=== PATIENT | female | born 1970 | race Caucasian/White ===

== ENCOUNTER 2024-09-11 14:04 | Inpatient (IN) | payer OTHER ==
[~2024-09-11] VITALS: Ht 175.3 cm; Wt 105.5 kg
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
[2024-09-11 15:00] VITALS: PULSE 71; RESP 18; O2SAT 97
--- NOTE | 2024-09-11 15:00 | DVH ---
CLINICAL INDICATION: pain TECHNIQUE: For XY R WRIST 2 VIEW XRAY Comparison: None FINDINGS/IMPRESSION: Comminuted, displaced and impacted fracture of the distal radial metaphysis with intra-articular exte nsion. Moderately displaced fracture of the styloid process of the ulna. Diffuse soft-tissue swelling.
[2024-09-11 16:02] LABS: Basophils # (auto) 0 10 ^3/uL (0-0.2); Basophils % (auto) 0.3 % (0.0-2.0); Eosinophils # (auto) 0 10 ^3/uL (0-0.8); Eosinophils % (auto) 0.1 % (0.0-7.0); Hematocrit 44.2 % (36.0-46.0); Hemoglobin 15.2 g/dL (12.2-16.2); Lymphocytes % (auto) 8.6 % (10.0-50.0); Mean Corpuscular Hemoglobin 31.5 pg (28.0-32.0); Mean Corpuscular Hgb Conc. 34.5 g/dL (32.0-36.0); Mean Corpuscular Volume 91.3 fL (80.0-100.0); Monocytes # (auto) 0.6 10 ^3/uL (0-1.3); Monocytes % (auto) 5.1 % (0.0-12.0); Neutrophils # (auto) 10.5 10 ^3/uL (1.6-8.6); Neutrophils % (auto) 85.9 % (37.0-80.0); Platelet Count (auto) 232 10^3/uL (140-450); Red Blood Cells 4.84 10^6/uL (4.0-5.20); Red Cell Distribution Width 12.4 % (11.8-14.3); White Blood Cell 12.2 10^3/uL (4.4-10.8)
[2024-09-11 16:13] LABS: Chloride 108 mmol/L (98-107); Potassium 3.9 mmol/L (3.5-5.1); Sodium 142 mmol/L (136-145)
[2024-09-11 16:14] LABS: Anion Gap 3 (5-15); Carbon Dioxide 31 mmol/L (20-31)
[2024-09-11 16:15] LABS: Calcium 9.5 mg/dL (8.7-10.4)
[2024-09-11 16:20] LABS: BUN/Creatinine Ratio 10.7 (10.0-20.0); Blood Urea Nitrogen 11 mg/dL (9-23); Glucose 83 mg/dL (74-106)
[2024-09-11] MEDS: ONDANSETRON HCL 4 MG/2 ML VIAL IV ONE ×2 (16:45→19:55)
[2024-09-11] MEDS: MORPHINE SULFATE 4 MG/ML SYR/VIAL IV ONE ×2 (16:45→19:55)
[2024-09-11] MEDS: ATROPINE SULF 1 MG/10ml SYR IV ONE (17:07)
[2024-09-11] MEDS: DOPamine 1600MCG/ML D5W 250 ML IV ONE (17:30)
[2024-09-11] MEDS: SODIUM CHLORIDE 0.9% 1,000 ML IV ONE (17:30)
[2024-09-11] MEDS: ATROPINE SULF 1 MG/10ml SYR ONE (18:07)
[2024-09-11 19:30] VITALS: PULSE 81; RESP 16; O2SAT 95
--- NOTE | 2024-09-11 21:06 | ECG ---
[facility] Test Date: 2024-09-11 Test Time: 14:05:16 Pat Name: TACOS STOKES Department: ER Room: [address] [place] [address] Gender: F Show Card Writer: DR XIONG: 1970 Requested By: TAMELA KERR Order Number: [id number] Reading MD: Brendan Dillon Measurements Intervals [place] Rate: 53 P: 49 [place]: 179 QRS: 38 QRSD: 109 T: 63 QT: 471 QTc: 443 Interpretive Statements Sinus rhythm Baseline wander in lead(s) V3 Electronically Signed On 09-12-2024 12:44:05 PST by Brendan Dillon Please click the below link to view image of tracing.
[2024-09-11] MEDS ORDERED: NITROGLYCERIN 0.4 MG SL TAB SL PRN (21:15)
[2024-09-11] MEDS ORDERED: ONDANSETRON HCL 4 MG/2 ML VIAL IV PRN (21:15)
[2024-09-11] MEDS ORDERED: MORPHINE SULFATE INJ 2 MG/ml SYRG IV PRN (21:15)
[2024-09-12] VITALS (52 sets, daily range): BP systolic 97–169; BP diastolic 35–77; PULSE 58–88; RESP 14–22; TEMP 98.1–99.2; O2SAT 82–95
[2024-09-12] MEDS: HYDROcodone-ACET 5/325MG TAB PO PRN (00:46)
[2024-09-12 03:50] LABS: Basophils # (auto) 0 10 ^3/uL (0-0.2); Basophils % (auto) 0.3 % (0.0-2.0); Eosinophils # (auto) 0 10 ^3/uL (0-0.8); Eosinophils % (auto) 0.1 % (0.0-7.0); Hemoglobin 14.5 g/dL (12.2-16.2); Lymphocytes # (auto) 0.9 10 ^3/uL (0.4-5.4); Lymphocytes % (auto) 8.8 % (10.0-50.0); Mean Corpuscular Hemoglobin 31.4 pg (28.0-32.0); Mean Corpuscular Hgb Conc. 33.8 g/dL (32.0-36.0); Monocytes # (auto) 0.9 10 ^3/uL (0-1.3); Monocytes % (auto) 9.3 % (0.0-12.0); Neutrophils # (auto) 8.1 10 ^3/uL (1.6-8.6); Neutrophils % (auto) 81.5 % (37.0-80.0); Platelet Count (auto) 238 10^3/uL (140-450); Red Blood Cells 4.62 10^6/uL (4.0-5.20); Red Cell Distribution Width 12.7 % (11.8-14.3); White Blood Cell 9.9 10^3/uL (4.4-10.8)
[2024-09-12 04:04] LABS: Chloride 105 mmol/L (98-107)
[2024-09-12 04:05] LABS: Anion Gap 3 (5-15); Calcium 8.8 mg/dL (8.7-10.4); Carbon Dioxide 27 mmol/L (20-31)
[2024-09-12 04:10] LABS: BUN/Creatinine Ratio 8.5 (10.0-20.0); Blood Urea Nitrogen 8 mg/dL (9-23); Glucose 235 mg/dL (74-106)
[2024-09-12 04:12] LABS: Sodium 135 mmol/L (136-145)
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
[2024-09-12] MEDS: DOPamine 1600MCG/ML D5W 0 ML IV ONE (07:58)
--- NOTE | 2024-09-12 08:34 | DVH ---
CHEST RADIOGRAPH Indication:sob Technique: Single frontal view of the chest was obtained Comparison: None FINDINGS: Lines and Tubes: None Lungs: No focal consolidation. There is minimal scarring versus atelectasis in the left lung base. Pleura: No effusion.No pneumothorax. Cardiomediastinal contours: Unremarkable Bones: No acute osseous abnormality. IMPRESSION: 1. No acute cardiopulmonary disease. HS:Y
[2024-09-12 10:17] LABS: Magnesium 2.1 mg/dL (1.6-2.6)
[2024-09-12 10:19] LABS: Phosphorus 3.1 mg/dL (2.4-5.1)
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
[2024-09-12 12:55] LABS: INR 0.97 (0.9-1.15); Partial Thromboplastin Time 28.5 SEC (24.5-34.5); Prothrombin Time 10.3 sec (9.3-11.8)
--- NOTE | 2024-09-12 13:26 | DVHSR ---
APPROVED REPORT EXAM: Two-dimensional and M-mode echocardiogram with Doppler and color Doppler. Blood Pressure: 139/60 mmHg INDICATION Arrhythmia RISK FACTORS Height: 5'9", Weight: 233 DIMENSIONS LVDd5.1 (3.8-5.7cm)LA (2D)4.4 (1.9-4.0cm)Aortic Root2.9 (2.0-3.7cm) LVDs2.8 (2.5-4.0cm)LA (MM) (1.9-4.0cm)Aortic Cusp Exc2.1 (1.5-2.0cm) EF (%) 76.0 (55-70%)Rt. Atrium4.2 (1.9-4.0cm)Asc. Aorta3.2 cm IVSd1.0 (0.7-1.1cm)RV (D)4.3 (1.8-2.4cm) PWd0.9 (0.7-1.1cm) Mitral Valve MitralMitral Stenosis E wave0.85m/sMV Mean GR.mmHg A wave0.98m/sMV Peak GR.mmHg E/A ratio0.92D MVAcm2 DECEL [id number] 1/2 Timems Aortic Valve Aortic ValveAortic Stenosis V11.02m/Rosa Isela Mean GR.7mmHg V21.94m/Rosa Isela Peak GR.15mmHg LVOT Diameter2.0 (1.8-2.4cm)Doppler AVA1.65cm2 Pulmonic Valve V21.25m/s Other Information Quality : Technically LimitedRhythm : Technically limited study due to body habitus. Conclusion Normal left ventricular size and dimension. Normal left ventricular systolic function estimated ejec tion fraction 55%. There is a grade 1 diastolic dysfunction. Normal right ventricular size and dimension. Normal right ventricular systolic function. Normal biatrial size and dimension. The aortic valve is thickened and has mild aortic valve sclerosis. Normal mitral valve structure and function. Normal tricuspid valve structure and function. The pulmonary valve is grossly normal. No pericardial effusion.
[2024-09-12] MEDS: MORPHINE SULFATE INJ 2 MG/ml SYRG IV PRN (14:57)
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
[2024-09-12] MEDS: TEMAZEPAM 15 MG CAP PO PRN (21:05)
[2024-09-13] VITALS (8 sets, daily range): BP systolic 140–176; BP diastolic 67–85; PULSE 77–94; RESP 16–20; TEMP 98.3–100.2; O2SAT 84–97
[2024-09-13 04:29] LABS: Urine Bacteria FEW /hpf (None Seen); Urine Blood Negative /uL (Negative); Urine Clarity Turbid (Clear); Urine Color Yellow (Yellow); Urine Hyaline Cast MOD /lpf (0 - 2); Urine Mucus FEW (None Seen); Urine Protein, UAD TRACE (Negative); Urine Specific Gravity 1.029 (1.001-1.035); Urine Urobilinogen Normal (Negative); Urine WBC 4 /hpf (0 - 5); Urine pH 5.5 (5.0-9.0)
[2024-09-13 04:43] LABS: Amphetamine Screen, Urine Neg (NEGATIVE); Barbiturate Scree,Urine Neg (NEGATIVE); Benzodiazephine Screen, Urine Neg (NEGATIVE); Cannabinoid Screen, Urine Neg (NEGATIVE); Cocaine Screen, Urine Neg (NEGATIVE); Opiate Scree,Urine Pos (NEGATIVE); Phencyclidine Screen, Urine Neg (NEGATIVE)
[2024-09-13 05:11] LABS: Basophils # (auto) 0 10 ^3/uL (0-0.2); Basophils % (auto) 0.2 % (0.0-2.0); Eosinophils # (auto) 0 10 ^3/uL (0-0.8); Eosinophils % (auto) 0.2 % (0.0-7.0); Hematocrit 41.6 % (36.0-46.0); Hemoglobin 14.4 g/dL (12.2-16.2); Lymphocytes # (auto) 1.2 10 ^3/uL (0.4-5.4); Lymphocytes % (auto) 10.5 % (10.0-50.0); Mean Corpuscular Hemoglobin 31.5 pg (28.0-32.0); Mean Corpuscular Hgb Conc. 34.6 g/dL (32.0-36.0); Mean Corpuscular Volume 91.1 fL (80.0-100.0); Monocytes # (auto) 0.7 10 ^3/uL (0-1.3); Monocytes % (auto) 6.6 % (0.0-12.0); Neutrophils # (auto) 9.2 10 ^3/uL (1.6-8.6); Neutrophils % (auto) 82.5 % (37.0-80.0); Platelet Count (auto) 241 10^3/uL (140-450); Red Blood Cells 4.57 10^6/uL (4.0-5.20); Red Cell Distribution Width 12.4 % (11.8-14.3); White Blood Cell 11.1 10^3/uL (4.4-10.8)
[2024-09-13 05:24] LABS: Alanine Aminotransferase 21 U/L (7-40); Alkaline Phosphatase 85 U/L (46-116); Anion Gap 3 (5-15); Aspartate Aminotransferase 15 U/L (13-40); BUN/Creatinine Ratio 13.8 (10.0-20.0); Blood Urea Nitrogen 13 mg/dL (9-23); Calcium 9.1 mg/dL (8.7-10.4); Carbon Dioxide 28 mmol/L (20-31); Chloride 105 mmol/L (98-107); Glucose 124 mg/dL (74-106); Potassium 4.1 mmol/L (3.5-5.1); Sodium 136 mmol/L (136-145)
[2024-09-13 05:25] LABS: Bilirubin, Total 0.4 mg/dL (0.2-1.0); Total Protein 6.5 g/dL (5.7-8.2)
[2024-09-13 08:33] LABS: Base Excess 2.3 mmol/L (-2.0-3.0)
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
[2024-09-13] MEDS: ACETAMINOPHEN 325 MG TAB PO PRN (11:52)
[2024-09-13] MEDS: hydrALAZINE HCL 20 MG/ML VL IV PRN (12:20)
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
--- NOTE | 2024-09-13 17:46 | DVH ---
CTA Chest with intravenous contrast INDICATION: rule out pe COMPARISON: None TECHNIQUE: Multidetector spiral CTA of the chest was performed of the chest with intravenous contrast . PULMONARY ANGIOGRAPHY PROTOCOL was utilized using a bolus-tracking technique centered on the main p ulmonary artery. Axial, coronal and sagittal multiplanar and MIP reformats were performed. CONTRAST: Type of contrast: Omni 350 Contrast injected: 100 ml Radiation dose : Chest: CTDI volume is 39 mGy. Dose-length product is 835.89 mGy*cm The dose indicators for CT are the volume computed Tomography (CT) dose Index (CTDIvol) and the dose Length product (DLP), and are measured in units of mGy and mGy-cm, respectively. These indicators are not patient dose, but values generated from the CT scanner acquisition factors. The report includes radiation exposure data for exposures received during this examination. Findings: Pulmonary artery: No pulmonary embolism Lower neck: Normal thyroid. Lungs: Partially calcified nodule in the left upper lobe measuring up to 11 mm. Bibasilar atelectasis and consolidation. Heart/Vascular Structures: Normal heart size. No pericardial effusion. Lymph Nodes: No adenopathy Pleura: No pleural effusion or significant pneumothorax. Musculoskeletal: No acute osseous abnormality. Soft tissues: Normal. Upper abdomen: Limited portions of the upper abdomen are unremarkable. IMPRESSION: 1. No pulmonary embolism. 2. Left upper lobe likely granuloma. Bibasilar atelectasis and consolidation. HS:Y
[2024-09-14] VITALS (8 sets, daily range): BP systolic 144–179; BP diastolic 52–73; PULSE 76–92; RESP 16–20; TEMP 98.2–98.5; O2SAT 94–97
[2024-09-14] MEDS: IOHEXOL 350 MG/ML 100ML IJ ONE (07:31)
[2024-09-14] MEDS: AZITHROMYCIN 500MG/ 250ML 250 ML IV SCH (09:15)
[2024-09-14] MEDS: cefTRIAXone 1GM/50ML D5W 50 ML IV SCH (09:15)
[2024-09-14] MEDS: LOSARTAN POTASSIUM 50 MG TAB PO SCH (09:16)
[2024-09-14] MEDS ORDERED: HYDR-4902 PO ×2 (12:12→13:01)
[2024-09-14] MEDS ORDERED: LOSA-534 PO (12:12)
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
[2024-09-15 05:00] VITALS: BP 155/70; PULSE 86; RESP 18; TEMP 98.3; O2SAT 95
[2024-09-15 08:00] VITALS: PULSE 107
[2024-09-15 09:00] VITALS: BP 155/65; PULSE 100; RESP 16; TEMP 97.7; O2SAT 93
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
[2024-09-15 13:00] VITALS: BP 140/62; PULSE 78; RESP 16; TEMP 97.6; O2SAT 94
== END 2024-09-15 15:30 | disposition home health service (06) | DRG 562 ==
LOC: ER 14:04 → EDBD 14:04 → TELE 21:04 → ICU WEST 23:41 → TELE-WESTW 09-12 13:50
PROVIDERS: ADMIT Internal Medicine Pulmonary Disease; ATTEND Emergency Medicine
DX: S52.501A Unspecified fracture of the lower end of right radius, initial encounter for closed fracture (principal); J18.9 Pneumonia, unspecified organism; J96.01 Acute respiratory failure with hypoxia; N17.9 Acute kidney failure, unspecified; E66.9 Obesity, unspecified; R73.9 Hyperglycemia, unspecified; S06.0X0A Concussion without loss of consciousness, initial encounter; X58.XXXA Exposure to other specified factors, initial encounter; R00.1 Bradycardia, unspecified; F17.210 Nicotine dependence, cigarettes, uncomplicated; Z82.49 Family history of ischemic heart disease and other diseases of the circulatory system; V89.2XXA Person injured in unspecified motor-vehicle accident, traffic, initial encounter; Y93.89 Activity, other specified; Y99.8 Other external cause status; Z68.34 Body mass index [BMI] 34.0-34.9, adult; Y92.488 Other paved roadways as the place of occurrence of the external cause
CPT/HCPCS: 36415; 36600; 71045; 71250; 71275; 73100; 74176; 80048; 80053; 80061; 80307; 81001; 82306; 82607; 82805; 83036; 83605; 83735; 83880; 84100; 84443; 84484; 85025; 85610; 85730; 87081; 93005; 93306; 96365; 96375; 96376; G0378; J2405